=== PATIENT | female | born 1945 | race Caucasian/White ===

== ENCOUNTER 2021-02-06 11:03 | Emergency (ER) | payer MEDICARE, OTHER ==
[~2021-02-06 11:03] MED LIST: AUGMENTIN 875-1 EACH PO; AZELASTINE137 MCG/0.; CETIRIZINE HCL10 MG PO; DIAZEPAM5 MG PO; DOXYCYCLINE HY100 MG PO; ESTRADIOL1 MG PO; LASIX40 MG PO; LEVOTHYROXINE88 MCG PO; METHYLPREDNISOLO4 M1 PO; MOBIC7.5 MG PO; MONTELUKAST SOD10 MG PO; NEBULIZER UNIT NEB; PROPRANOLOL HCL40 MG PO; SUMATRIPTAN SU100 MG PO
[2021-02-06 11:37] LABS: BASOPHIL 0.6 % (0-2); EOSINOPHIL 2.1 % (0-7); HCT 39.3 % (37.0-47.0); HGB 13.1 g/dl (12.5-16.0); LYMPHOCYTE 27.4 % (15-48); MCH 30.9 pg (25.0-31.0); MCHC 33.3 g/dL (32.0-36.0); MCV 92.7 fL (78.0-100.0); MONOCYTE 7.4 % (0-12); MPV 11.2 fL (6.0-9.5); NRBC 0; PLT 249 K/uL (150-400); RBC 4.24 M/uL (4.20-5.40); WBC 8.5 K/uL (4.0-10.5)
[2021-02-06 11:40] LABS: INR 0.87 (0.9-1.2); PROTHROMBIN TIME 11.2 SECONDS (11.4-13.6); PTT 32.2 SECONDS (22.2-34.7)
[2021-02-06 11:45] LABS: ALBUMIN 3.5 g/dL (3.4-5.0); BILIRUBIN - TOTAL 0.4 mg/dL (0.2-1.0); CREATININE 0.88 mg/dL (0.51-0.95); GLOBULIN (CALCULATION) 3.7 g/dL; POTASSIUM 3.8 mmol/L (3.5-5.1); TOTAL PROTEIN 7.2 g/dL (6.4-8.2)
[2021-02-06 14:30] LABS: BILIRUBIN NEGATIVE (NEGATIVE); BLOOD NEGATIVE Ery/uL (NEGATIVE); CLARITY CLEAR (CLEAR); COLOR YELLOW (YELLOW); GLUCOSE (U) NORMAL (NORMAL); LEUKOCYTES NEGATIVE Leu/uL (NEGATIVE); NITRITE NEGATIVE (NEGATIVE); PROTEIN NEGATIVE (NEGATIVE); SPECIFIC GRAVITY <=1.005 (1.001-1.030); UROBILINOGEN 0.2 mg/dL (0.2-1.0)
[2021-02-06] MEDS ORDERED: SYNTHROID75 MCG PO (15:11)
== END 2021-02-06 15:48 | disposition home or self-care (01) ==
LOC: FER 11:03
PROVIDERS: Emergency Medicine; Nurse Practitioner Family
DX: R07.89 Other chest pain (principal); E03.9 Hypothyroidism, unspecified; R06.02 Shortness of breath; J45.909 Unspecified asthma, uncomplicated; I50.9 Heart failure, unspecified; Z79.899 Other long term (current) drug therapy
CPT/HCPCS: 36415; 71045; 80053; 81003; 84443; 84484; 85025; 85610; 85730; 93005

== ENCOUNTER 2021-02-18 06:07 | Inpatient (IN) | payer MEDICARE, OTHER ==
[~2021-02-18 06:07] MED LIST changes: +SYNTHROID75 MCG PO
[2021-02-18 06:36] LABS: BASOPHIL 0.2 % (0-2); EOSINOPHIL 0.3 % (0-7); HCT 44.6 % (37.0-47.0); HGB 14.8 g/dl (12.5-16.0); LYMPHOCYTE 8.1 % (15-48); MCH 31.1 pg (25.0-31.0); MCHC 33.2 g/dL (32.0-36.0); MCV 93.7 fL (78.0-100.0); MONOCYTE 2.1 % (0-12); MPV 11.1 fL (6.0-9.5); NEUTROPHIL 88.9 % (41-80); NRBC 0; PLT 268 K/uL (150-400); RBC 4.76 M/uL (4.20-5.40); WBC 22.6 K/uL (4.0-10.5)
[2021-02-18 06:46] LABS: INR 0.92 (0.9-1.2); PROTHROMBIN TIME 11.7 SECONDS (11.4-13.6)
[2021-02-18 06:47] LABS: PTT 29.7 SECONDS (22.2-34.7)
[2021-02-18 06:56] LABS: ALBUMIN 3.1 g/dL (3.4-5.0); ALKALINE PHOSHATASE 85 U/L (46-116); ALT 25 U/L (14-59); AST 16 U/L (15-37); BILIRUBIN - TOTAL 0.5 mg/dL (0.2-1.0); BUN 16 mg/dL (7-18); BUN/CREAT RATIO (CALC) 16.7 RATIO; CHLORIDE 102 mmol/L (98-107); CO2 (BICARBONATE) 30 mmol/L (21-32); CREATININE 0.96 mg/dL (0.51-0.95); GLOBULIN (CALCULATION) 3.2 g/dL; GLUCOSE 113 mg/dL (74-106); LIPASE 96 U/L (73-393); PHOSPHORUS 3.9 mg/dL (2.6-4.7); POTASSIUM 3.7 mmol/L (3.5-5.1); TOTAL PROTEIN 6.3 g/dL (6.4-8.2)
[2021-02-18 06:59] LABS: C-REACTIVE PROTEIN < 0.20 mg/dL (<=0.90); PRO-BNP 111 pg/mL (<125)
[2021-02-18 07:21] LABS: CORONAVIRUS 2019 SARS-COV-2 NEGATIVE (NEGATIVE); INFLUENZA A NAA NEGATIVE (NEGATIVE)
[2021-02-18 07:39] LABS: LACTIC ACID 1.7 mmol/L (0.4-1.9)
[2021-02-18] MEDS ORDERED: PANTOPRAZOLE SO40 MG PO (10:52)
[2021-02-18] MEDS ORDERED: POTASSIUM CHLO20 ME2 PO (10:53)
[2021-02-18] MEDS ORDERED: BUMETANIDE0.5 MG PO (10:58)
[2021-02-18] MEDS ORDERED: ATORVASTATIN CA10 MG PO (11:01)
[2021-02-18] MEDS ORDERED: MONTELUKAST SOD10 MG PO (11:03)
[2021-02-18 12:56] LABS: BILIRUBIN NEGATIVE (NEGATIVE); BLOOD NEGATIVE Ery/uL (NEGATIVE); CLARITY CLEAR (CLEAR); COLOR YELLOW (YELLOW); GLUCOSE (U) NORMAL (NORMAL); LEUKOCYTES NEGATIVE Leu/uL (NEGATIVE); NITRITE NEGATIVE (NEGATIVE); PROTEIN NEGATIVE (NEGATIVE); UROBILINOGEN 0.2 mg/dL (0.2-1.0)
[2021-02-19 06:25] LABS: HCT 36.8 % (37.0-47.0); HGB 11.9 g/dl (12.5-16.0); MCH 30.9 pg (25.0-31.0); MCHC 32.3 g/dL (32.0-36.0); MCV 95.6 fL (78.0-100.0); MPV 11.1 fL (6.0-9.5); RBC 3.85 M/uL (4.20-5.40); RDW 12.1 % (11.5-14.0); WBC 10.2 K/uL (4.0-10.5)
[2021-02-19 06:37] LABS: BUN/CREAT RATIO (CALC) 12.8 RATIO; CREATININE 0.78 mg/dL (0.51-0.95)
[2021-02-20 07:12] LABS: HGB 11.5 g/dl (12.5-16.0); MCH 30.8 pg (25.0-31.0); MCHC 32.9 g/dL (32.0-36.0); MCV 93.8 fL (78.0-100.0); MPV 10.9 fL (6.0-9.5); RBC 3.73 M/uL (4.20-5.40); WBC 8.5 K/uL (4.0-10.5)
[2021-02-20 07:28] LABS: BUN/CREAT RATIO (CALC) 7.4 RATIO; C-REACTIVE PROTEIN 1.1 mg/dL (<=0.90); CREATININE 0.81 mg/dL (0.51-0.95)
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
[2021-02-21 06:58] LABS: HCT 34.7 % (37.0-47.0); HGB 11.6 g/dl (12.5-16.0); MCH 31.2 pg (25.0-31.0); MCHC 33.4 g/dL (32.0-36.0); MCV 93.3 fL (78.0-100.0); RBC 3.72 M/uL (4.20-5.40); RDW 12.1 % (11.5-14.0); WBC 9.8 K/uL (4.0-10.5)
[2021-02-21 07:18] LABS: BUN/CREAT RATIO (CALC) 10.7 RATIO; CREATININE 0.84 mg/dL (0.51-0.95); POTASSIUM 3.7 mmol/L (3.5-5.1)
[2021-02-21] MEDS ORDERED: BENTYL10 MG PO (11:52)
[2021-02-21] MEDS ORDERED: ZOFRAN4 M1 PO (11:52)
[2021-02-21] MEDS ORDERED: METRONIDAZOLE500 MG PO (11:52)
[2021-02-21] MEDS ORDERED: CIPRO500 MG PO (11:52)
--- NOTE | 2021-02-21 18:31 | NUR ---
PT REFUSED LOVENOX SHOT
== END 2021-02-21 17:30 | disposition home health service (06) | DRG 392 ==
LOC: FER 06:07 → FMS 08:21
PROVIDERS: Emergency Medicine; Student in an Organized Health Care Education/Training Program; ADMIT Hospitalist
DX: K52.9 Noninfective gastroenteritis and colitis, unspecified (principal); E86.0 Dehydration; E87.6 Hypokalemia; F41.9 Anxiety disorder, unspecified; Z20.822 Contact with and (suspected) exposure to COVID-19; I50.9 Heart failure, unspecified; E78.5 Hyperlipidemia, unspecified; E03.9 Hypothyroidism, unspecified; K21.9 Gastro-esophageal reflux disease without esophagitis; G43.909 Migraine, unspecified, not intractable, without status migrainosus; Z90.49 Acquired absence of other specified parts of digestive tract; Z98.51 Tubal ligation status; Z88.5 Allergy status to narcotic agent; Z88.6 Allergy status to analgesic agent; Z90.710 Acquired absence of both cervix and uterus
CPT/HCPCS: 36415; 71045; 80048; 80076; 81003; 83605; 83631; 83690; 83880; 84100; 84145; 84484; 85025; 85610; 85730; 86140; 87040; 87045; 87046; 87449; 93005; 97166; 97535; G0378; J1650; J1956; J2060; J2270; J2405; J7030; Q9967; U0002

== ENCOUNTER 2021-07-03 06:16 | Emergency (ER) | payer MEDICARE, OTHER ==
[~2021-07-03 06:16] MED LIST changes: +ATORVASTATIN CA10 MG PO; +BENTYL10 MG PO; +BUMETANIDE0.5 MG PO; +CIPRO500 MG PO; +METRONIDAZOLE500 MG PO; +PANTOPRAZOLE SO40 MG PO; +POTASSIUM CHLO20 ME2 PO; +ZOFRAN4 M1 PO
[2021-07-03 06:48] LABS: BASOPHIL 0.4 % (0-2); EOSINOPHIL 0.8 % (0-7); HCT 42.4 % (37.0-47.0); HGB 14.2 g/dl (12.5-16.0); LYMPHOCYTE 20.1 % (15-48); MCH 30.1 pg (25.0-31.0); MCHC 33.5 g/dL (32.0-36.0); MONOCYTE 5.5 % (0-12); MPV 10.8 fL (6.0-9.5); NEUTROPHIL 72.9 % (41-80); NRBC 0; PLT 246 K/uL (150-400); RBC 4.71 M/uL (4.20-5.40); RDW 11.9 % (11.5-14.0); WBC 10.3 K/uL (4.0-10.5)
[2021-07-03 06:49] LABS: BILIRUBIN NEGATIVE (NEGATIVE); BLOOD NEGATIVE Ery/uL (NEGATIVE); CLARITY CLEAR (CLEAR); COLOR YELLOW (YELLOW); GLUCOSE (U) NORMAL (NORMAL); LEUKOCYTES NEGATIVE Leu/uL (NEGATIVE); NITRITE POSITIVE (NEGATIVE); PROTEIN NEGATIVE (NEGATIVE); SPECIFIC GRAVITY 1.025 (1.001-1.030)
[2021-07-03 07:05] LABS: BACTERIA 1+; YEAST PRESENT
[2021-07-03 07:13] LABS: ALBUMIN 3.4 g/dL (3.4-5.0); BILIRUBIN - TOTAL 0.4 mg/dL (0.2-1.0); BUN/CREAT RATIO (CALC) 10.2 RATIO; CREATININE 1.08 mg/dL (0.51-0.95); GLOBULIN (CALCULATION) 3.9 g/dL; POTASSIUM 3.9 mmol/L (3.5-5.1); TOTAL PROTEIN 7.3 g/dL (6.4-8.2)
[2021-07-03] MEDS ORDERED: PHENERGAN25 M1 PO (07:29)
[2021-07-03] MEDS ORDERED: CIPRO500 MG PO (07:29)
== END 2021-07-03 09:11 | disposition home or self-care (01) ==
LOC: FER 06:16
PROVIDERS: Emergency Medicine
DX: N30.90 Cystitis, unspecified without hematuria (principal); N28.1 Cyst of kidney, acquired; R11.0 Nausea; I50.9 Heart failure, unspecified; Z88.5 Allergy status to narcotic agent; Z88.1 Allergy status to other antibiotic agents; Z20.822 Contact with and (suspected) exposure to COVID-19
CPT/HCPCS: 36415; 71045; 80053; 81001; 84484; 85025; 93005; Q0169; U0002

== ENCOUNTER 2022-02-10 07:11 | Emergency (ER) | payer MEDICARE, OTHER ==
[~2022-02-10] VITALS: Ht 160 cm; Wt 74.8 kg
[~2022-02-10 07:11] MED LIST changes: +PHENERGAN25 M1 PO
[2022-02-10 09:21] LABS: BASOPHIL 0.7 % (0-2); HCT 41.2 % (37.0-47.0); HGB 13.7 g/dl (12.5-16.0); LYMPHOCYTE 30.7 % (15-48); MCH 31.4 pg (25.0-31.0); MCHC 33.3 g/dL (32.0-36.0); MCV 94.5 fL (78.0-100.0); MPV 10.9 fL (6.0-9.5); NEUTROPHIL 55.2 % (41-80); NRBC 0; PLT 271 K/uL (150-400); RBC 4.36 M/uL (4.20-5.40); RDW 12.1 % (11.5-14.0)
[2022-02-10 09:39] LABS: BUN/CREAT RATIO (CALC) 14.6 RATIO; CREATININE 0.96 mg/dL (0.51-0.95); POTASSIUM 3.8 mmol/L (3.5-5.1)
[2022-02-10] MEDS ORDERED: CIPRODEX OTIC7.5 ML AU (10:13)
== END 2022-02-10 10:48 | disposition home or self-care (01) ==
LOC: FER 07:11
PROVIDERS: Emergency Medicine
DX: H60.91 Unspecified otitis externa, right ear (principal); H61.21 Impacted cerumen, right ear; I11.0 Hypertensive heart disease with heart failure; I50.9 Heart failure, unspecified; Z88.1 Allergy status to other antibiotic agents
CPT/HCPCS: 32555; 36415; 70450; 71045; 72125; 80048; 84484; 85025; 93005